=== PATIENT | female | born 1980 | race African-American/Black ===

== ENCOUNTER 2025-06-23 23:30 | Emergency (ER) | payer OTHER ==
[2025-06-23 23:39] VITALS: TEMP 98.2; BMI 25.4
[2025-06-24] MEDS ORDERED: ACETAMINOPHEN INJECTION 100 ML ONE (00:33)
[2025-06-24 00:54] LABS: ABSOLUTE IMMATURE GRANULOCYTES 0.02 x10^3/uL (0.0-0.031); BASOPHILS # 0.02 x10^3/uL (0.01-0.08); EOSINOPHIL % 0.7 % (0.7-5.8); EOSINOPHILS # 0.04 x10^3/uL (0.04-0.36); MCHC 31.2 g/dl (32.2-35.5); MEAN CELL VOLUME 93.9 fl (79.4-94.8); MEAN PLT VOLUME 9.4 fl (9.4-12.3); MONOCYTE # 0.36 x10^3/uL (0.24-0.86); MONOCYTE % 6.4 % (4.7-12.5); RDW 13.2 % (12.2-17.1)
[2025-06-24] MEDS: ACETAMINOPHEN 1000 MG/100 ML BAG IVPB ONE (00:55)
[2025-06-24 00:59] LABS: EPI CELLS 30 /uL (0-25.1); HYALINE CASTS 3 /uL (0-3.1); URINE APPEARANCE CLEAR; URINE BACTERIA 482 /uL (0-1359); URINE BILIRUBIN NEGATIVE (NEGATIVE); URINE COLOR YELLOW; URINE GLUCOSE (UA) NEGATIVE (NEGATIVE); URINE KETONE NEGATIVE (NEGATIVE); URINE LEUK ESTERASE TRACE (NEGATIVE); URINE NITRITE NEGATIVE (NEGATIVE); URINE PROTEIN TRACE (NEGATIVE); URINE UROBILINOGEN 2.0 mg/dL (0.2-1.0); URINE WBC 53 /uL (0-25.8)
[2025-06-24 01:00] LABS: HCG,QUALITATIVE URINE Negative
[2025-06-24 01:09] LABS: INR 1.0 (0.83-1.09); PROTHROMBIN TIME (PATIENT) 11.0 SEC (9.7-13.0)
[2025-06-24 01:12] LABS: ACTIVATED PTT 28.0 SECONDS (25.2-36.5)
[2025-06-24 01:13] LABS: CO2 25.0 mmol/L (21-32)
[2025-06-24 01:14] LABS: GLUCOSE,RANDOM 109.0 mg/dL (74-106)
[2025-06-24 01:16] LABS: CREATININE 0.6 mg/dL (0.55-1.3); SGPT/ALT 20.0 U/L (13-61)
[2025-06-24 01:17] LABS: SGOT/AST 15.0 U/L (15-37)
[2025-06-24 01:18] LABS: TOT PROT 6.5 g/dl (6.4-8.2)
[2025-06-24 01:19] LABS: ALK PHOS 40.0 U/L (45-117)
[2025-06-24] MEDS ORDERED: MORPHINE SULFATE 2 MG/ML SYRINGE ONE (01:21)
[2025-06-24] MEDS: morphine CARPU-JECT 4 MG/1 ML DISP.SYRIN IVPUSH ONE (01:30)
[2025-06-24] MEDS ORDERED: MAG HYDROX/AL HYDROX/SIMETH 30 ML UNIT-DOSE CUP ONE (02:12)
[2025-06-24] MEDS ORDERED: FAMOTIDINE 20 MG/50 ML IVPB 20 MG/50 ML MG IVPB ONE (02:12)
[2025-06-24] MEDS: MAG HYDROX/AL HYDROX/SIMETH 30 ML UNIT-DOSE CUP PO ONE (02:20)
[2025-06-24] MEDS: FAMOTIDINE 20 MG/50 ML IVPB 20 MG/50 ML MG IVPB ONE (02:20)
[2025-06-24 02:40] LABS: URINE RBC 46 /uL (0-23.9)
[2025-06-24 03:33] VITALS: BP 118/76; PULSE 76; RESP 18
[2025-06-24 13:06] LABS: HIV INTERPRETATION NEGATIVE (NEGATIVE)
[2025-06-24 13:13] LABS: HCV DIAGNOSTIC IN-HOUSE W/RFLX NON-REACTIVE (NONREACTIVE)
== END 2025-06-24 03:33 | disposition home or self-care (01) ==
LOC: JER 23:30
PROC: 3E033GC Introduction of Other Therapeutic Substance into Peripheral Vein, Percutaneous Approach (ICD-10-PCS; principal; 2025-06-24)
PROC: 3E033NZ Introduction of Analgesics, Hypnotics, Sedatives into Peripheral Vein, Percutaneous Approach (ICD-10-PCS; 2025-06-24)
PROC: 3E033NZ Introduction of Analgesics, Hypnotics, Sedatives into Peripheral Vein, Percutaneous Approach (ICD-10-PCS; 2025-06-24)
DX: R10.13 Epigastric pain (principal); R10.11 Right upper quadrant pain; R10.12 Left upper quadrant pain
CPT/HCPCS: 36415; 74177-TC; 80053; 81003; 83605; 83690; 83735; 84703; 85025; 85610; 85730; 86803; 87086; 87389; 93005; 93010; 99285-25